=== PATIENT | female | born 1945 | race Caucasian/White ===

== ENCOUNTER 2022-11-08 09:06 | Outpatient (CLI) | payer MEDICARE, SELFPAY | END 2022-11-08 09:07 | disposition home or self-care (01) | LOC: OP CLINIC 09:15 | PROVIDERS: PCP Family Medicine; Visit Provider Surgery | DX: Z86.010 Personal history of colon polyps (principal); K63.5 Polyp of colon; K57.30 Diverticulosis of large intestine without perforation or abscess without bleeding; Z80.0 Family history of malignant neoplasm of digestive organs; Z98.890 Other specified postprocedural states | CPT/HCPCS: 45380; 45385; 88305; 99153; J1200; J2250; J3010 ==

== ENCOUNTER 2023-05-22 06:46 | Day surgery (SDC) | payer MEDICARE, SELFPAY ==
[2023-05-22] MEDS: TETRACAINE 0.5% OPHTH 1 DROP EYE-LEFT ×2 (06:50→06:55)
[2023-05-22] MEDS: KETOROLAC OPHTH 0.5% 1 DROP EYE-LEFT ×3 (06:50→07:00)
[2023-05-22 07:10] VITALS: BMI 23.6
[2023-05-22 07:13] VITALS: BP 128/90; PULSE 78; RESP 16; TEMP 36.8; O2SAT 96
[2023-05-22] MEDS: SODIUM CHLORIDE 0.9 % (FLUSH) 10 ML SYRINGE IVF (07:14)
--- NOTE | 2023-05-22 07:17 | SUR.PREOP ---
The eye drops brought by the patient (Ketorolac and Prednisolone) are examined and I have determined they are labeled by the patient's pharmacy for this patient as prescribed by the surgeon. The bottles are intact, recently obtained and appear to be correct. left eye volkertr
[2023-05-22] MEDS: TETRACAINE 0.5% OPHTH 2 DROP EYE-LEFT (07:52)
[2023-05-22] MEDS: BALANCED SALT IRRIG SOLN 15 ML EYE-LEFT (07:54)
--- NOTE | 2023-05-22 07:59 | W.ANESCHARGE ---
Anesthesia Charges Start Date/Time Anesthesia Start Date: 05/22/23 Anesthesia Start Time: 07:48 Stop Date/Time Anesthesia Stop Date: 05/22/23 Anesthesia Stop Time: 08:18 Summary Extremes of Age - Over 70 or under 1: MDA
[2023-05-22 08:18] VITALS: BP 127/90; PULSE 78; RESP 16; TEMP 36.4; O2SAT 96
--- NOTE | 2023-05-22 08:19 | P.ANES_ITS ---
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
--- NOTE | 2023-05-22 09:11 | P.OPTPRC_ITS ---
Procedure Note Date of procedure: 05/22/23 Will [facility] bill your pro fee for this procedure?: Yes Procedure Description: SURGEON: Kathrine Martin MD PREOPERATIVE DIAGNOSIS: Nuclear sclerotic cataract, left eye. POSTOPERATIVE DIAGNOSIS: Nuclear sclerotic cataract, left eye. NAME OF OPERATION: Phacoemulsification of cataract with posterior chamber intraocular lens implantation in the left eye. ANESTHESIA: Topical. ESTIMATED BLOOD LOSS: Less than 2 cc. COMPLICATIONS: None. PATHOLOGY SPECIMEN: None. INDICATIONS: See consult note for details. The risks, benefits and alternatives of the procedure were explained to the patient, who elected to proceed and sig bindu informed consent to do so. PROCEDURE: The patient was brought to the pre-holding area where the left eye was identified as the operative eye. I placed my initials above this eye. The patient received eye drops consisting of 0.5% tetracaine, 1% tropicamide, 10% phenylephrine, and 0.5% ketorolac. The patient was then brought to the operating room where the left eye was again identified as the operative eye. The eye was prepped with Betadine and draped in the usual sterile ophthalmic fashion. A #15 super-sharp blade was used to create a paracentesis site. 1% non-preserved intracameral lidocaine was injected into the anterior chamber. Endocoat was injected into the anterior chamber. A 2.4 mm keratome was used to create a three-plane self-sealing incision 1 mm anterior to the temporal limbus. A cystotome was used to create an anterior capsular leaflet. The Utrata forceps were used to extend this to form a continuous curvilinear capsulorrhexis. Hydrodissection was performed. The cataract was removed with phacoemulsification using the eszojj-[id number]-vptonyr technique. The irrigation and aspiration tip was used to remove the remaining cortex. Healon was injected into the capsular bag. An JANA ZCB00 intraocular lens of 21.0 diopters was injected into the capsular bag. The irrigation and aspiration tip was used to remove the remaining viscoelastic. Balanced salt solution on a cannula was used to hydrate the wound, and the wound was found to be watertight. The pupil was noted to be round. DISPOSITION: The patient was taken to the recovery room and discharged to home in stable condition. The patient was instructed to call me or go to the emergency department with any sudden change, including dramatic loss of vision, severe pain in the eye or eyebrow region, nausea, or vomiting. The patient will follow up in the clinic tomorrow morning.
== END 2023-05-22 09:35 | disposition home or self-care (01) ==
PROVIDERS: PCP Family Medicine; Visit Provider Ophthalmology
PROC: (CPT 66984; principal; 2023-05-22 06:45)
DX: H25.12 Age-related nuclear cataract, left eye (principal)
CPT/HCPCS: 66984; 142; 99100; A9270; J2250; J3010; V2632

== ENCOUNTER 2023-06-05 08:43 | Day surgery (SDC) | payer MEDICARE, SELFPAY ==
[2023-06-05] MEDS: KETOROLAC OPHTH 0.5% 1 DROP EYE-RIGHT ×3 (09:00→09:20)
[2023-06-05] MEDS: TETRACAINE 0.5% OPHTH 1 DROP EYE-RIGHT ×2 (09:00→09:13)
--- NOTE | 2023-06-05 09:12 | SUR.PREOP ---
The eye drops brought by the patient (Ketorolac and Prednisolone) are examined and I have determined they are labeled by the patient's pharmacy for this patient as prescribed by the surgeon. The bottles are intact, recently obtained and appear to be correct.
[2023-06-05 09:13] VITALS: BP 145/86; PULSE 76; RESP 16; TEMP 36.6; O2SAT 98
[2023-06-05 09:14] VITALS: BMI 23.6
[2023-06-05] MEDS: SODIUM CHLORIDE 0.9 % (FLUSH) 10 ML SYRINGE IVF (09:25)
--- NOTE | 2023-06-05 09:40 | W.ANESCHARGE ---
Anesthesia Charges Start Date/Time Anesthesia Start Date: 06/05/23 Anesthesia Start Time: 10:16 Stop Date/Time Anesthesia Stop Date: 06/05/23 Anesthesia Stop Time: 10:51 Summary Extremes of Age - Over 70 or under 1: MDA
[2023-06-05] MEDS: TETRACAINE 0.5% OPHTH 2 DROP EYE-RIGHT (10:20)
--- NOTE | 2023-06-05 10:21 | W.ANESCHARGE ---
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
[2023-06-05] MEDS: BALANCED SALT IRRIG SOLN 15 ML EYE-RIGHT (10:24)
[2023-06-05 10:47] VITALS: BP 127/88; PULSE 73; RESP 16; TEMP 36.6; O2SAT 95
--- NOTE | 2023-06-05 10:52 | W.PM.OPTPROC ---
Procedure Note Date of procedure: 06/05/[address] [facility] bill your pro fee for this procedure?: Yes Procedure Description: SURGEON: Kathrine Martin MD PREOPERATIVE DIAGNOSIS: Nuclear sclerotic cataract, right eye. POSTOPERATIVE DIAGNOSIS: Nuclear sclerotic cataract, right eye. NAME OF OPERATION: Phacoemulsification of cataract with posterior chamber intraocular lens implantation in the right eye. ANESTHESIA: Topical. ESTIMATED BLOOD LOSS: Less than 2 cc. COMPLICATIONS: None. PATHOLOGY SPECIMEN: None. INDICATIONS: See consult note for details. The risks, benefits and alternatives of the procedure were explained to the patient, who elected to proceed and signed informed consent to do so. PROCEDURE: The patient was brought to the pre-holding area where the right eye was identified as the operative eye. I placed my initials above this eye. The patient received eye drops consisting of 0.5% tetracaine, 1% tropicamide, 10% phenylephrine, and 0.5% ketorolac. The patient was then brought to the operating room where the right eye was again identified as the operative eye. The eye was prepped with Betadine and draped in the usual sterile ophthalmic fashion. A #15 super-sharp blade was used to create a paracentesis site. 1% non-preserved intracameral lidocaine was injected into the anterior chamber. Endocoat was injected into the anterior chamber. A 2.4 mm keratome was used to create a three-plane self-sealing incision 1 mm anterior to the temporal limbus. A cystotome was used to create an anterior capsular leaflet. The Utrata forceps were used to extend this to form a continuous curvilinear capsulorrhexis. Hydrodissection was performed. The cataract was removed with phacoemulsification using the [id number] technique. The irrigation and aspiration tip was used to remove the remaining cortex. Healon was injected into the capsular bag. An JANA ZCB00 intraocular lens of 21.0 diopters was injected into the capsular bag. The irrigation and aspiration tip was used to remove the remaining viscoelastic. Balanced salt solution on a cannula was used to hydrate the wound, and the wound was found to be watertight. The pupil was noted to be round. DISPOSITION: The patient was taken to the recovery room and discharged to home in stable condition. The patient was instructed to call me or go to the emergency department with any sudden change, including dramatic loss of vision, severe pain in the eye or eyebrow region, nausea, or vomiting. The patient will follow up in the clinic tomorrow morning.
== END 2023-06-05 11:21 | disposition home or self-care (01) ==
PROVIDERS: PCP Family Medicine; Visit Provider Ophthalmology
PROC: (CPT 66984; principal; 2023-06-05 09:00)
DX: H25.11 Age-related nuclear cataract, right eye (principal)
CPT/HCPCS: 66984; 00142; 99100; A9270; J2250; J3010; V2632

== ENCOUNTER 2025-07-14 18:21 | Outpatient (CLI) | payer MEDICARE, SELFPAY | END 2025-07-14 18:22 | disposition home or self-care (01) | LOC: AMB 07-16 01:11 | PROVIDERS: PCP Family Medicine; Visit Provider Emergency Medicine Emergency Medical Services | DX: R42 Dizziness and giddiness (principal) | CPT/HCPCS: A0425; A0427 ==

== ENCOUNTER 2025-07-14 18:53 | Emergency (ER) | payer MEDICARE, SELFPAY ==
[2025-07-14 19:04] VITALS: BP 142/84; PULSE 67; RESP 18; TEMP 36.6; O2SAT 98; BMI 24.4
--- NOTE | 2025-07-14 19:23 | ED.DIZZY ---
HPI - Dizziness General Chief Complaint: Dizziness/Vertigo Stated Complaint: dizzy Time Seen by Provider: 07/14/25 19:14 History of Present Illness HPI Narrative: This 79-year-old female comes in reporting vertigo symptoms that started about 2 hours prior to arrival here. She had associated nausea with vomiting. She states that she has had vertigo long ago. She is otherwise in good health. She reports that the vertigo symptoms are minimal when remaining still. She does not report any speech change or other neurologic dysfunction. She does not have any hearing changes and does not report any headache. Related Data Home Medications ?Medication ?Instructions ?Recorded ?Confirmed calcium 600 mg (as 2 tab PO DAILY 05/08/23 05/25/24 carbonate)-vitamin D3 10 mcg (400 unit) tablet vitamins A,C,L-fxha-baqbow 2,148 2 tab PO .QD 05/08/23 05/25/24 mcg-113 mg-45 mg-17.4 mg tablet (PreserVision AREDS) Previous Rx's ?Medication ?Instructions ?Recorded meclizine 25 mg tablet 25 mg PO QID #20 tabs 07/14/25 Allergies Allergy/AdvReac Type Severity Reaction Status Date / Time No Known Drug Allergies Allergy Verified 05/25/24 12:47 Review of Systems Status of ROS: Reports: 10 or more systems reviewed and unremarkable except as noted in History and below Narrative: Constitutional: No fevers, no weight gain or loss. Eyes: No discharge. No vision changes. HENT: No congestion, no sore throat, no ear pain. Cardiovascular: No chest pain, no palpitations. Respiratory: No shortness of breath, no wheezes, no cough. Gastrointestinal: No abdominal pain, no vomiting, no diarrhea. Genitourinary: No dysuria, no hematuria. Musculoskeletal: Normal range of motion. Skin: No rashes, no pruritis. Neurological: No weakness, sensory change, speech change. Vertigo symptoms as described above. Endo/Heme/Allergies: No bruising or bleeding. No polydipsia. Pysch: no suicidality, no anxiety, no insomnia. All other systems reviewed and are negative. [facility] Surgical History (Updated 05/02/23 @ 08:24 by Radha Pena ~ PSR) History of colonoscopy (10/08/19) ?Z98.890 - Other specified postprocedural states (ICD-10) History of bunionectomy ?Z98.890 - Other specified postprocedural states (ICD-10) Hx of spinal fusion ?Z98.1 - Arthrodesis status (ICD-10) Social History Smoking Status: Never smoker Do you use any of these nicotine containing products: None How often do you have a drink containing alcohol: 4 or more times a week Alcohol type: wine How many standard drinks containing alcohol do you have on a typical day: 1 or 2 How often do you have six or more drinks on one occasion: Never AUDIT-C Alcohol total score: 4 Non-prescribed substance use: denies use Caffeine: Yes Are you using contraception or practicing any form of control: No Exam Narrative: Exam Narrative: Constitutional: Well-developed, well-nourished, no acute distress. HEENT: Normocephalic, atraumatic. No nystagmus. Neck: Normal range of motion. Nontender. Supple. Heart: Regular. No murmurs. Normal rate. Intact distal pulses. Lungs: Clear to auscultation. No chest discomfort. No wheezes, rhonchi, or rales. Abdomen: Normal bowel sounds. Nontender. No rebound tenderness. Genitalia: Deferred. Back: No midline tenderness. Normal range of motion. Extremities: Normal range of motion. No injury. Skin: Intact. No rash. Warm. No erythema or pallor. Neurologic: No altered sensation. No weakness. Alert and oriented. No facial asymmetry. Tongue is midline. Zpuzao-pr-ldsb is normal. No pronator drift. Nurse Substance Abuse strength is equal bilaterally. Able to raise each leg from the bed. Psychiatric: No suicidality. No anxiety or depression. No insomnia. Nursing notes and vitals signs are reviewed. Const: Vital Signs, click to edit/add: Vital Signs - 24 hr 07/14/25 19:04 Temperature 97.8 F Pulse Rate [Pulse Oximeter] 67 Respiratory Rate 18 Blood Pressure [Ri ght Upper Arm] 142/84 H Pulse Oximetry 98 Oxygen Delivery Me thod Room Air Course Vital Signs Vital signs: Initial Vital Signs Temperature 97.8 F 07/14/25 19:04 Temperature Source Temporal Artery Scan 07/14/25 19:04 Pulse Rate 67 07/14/25 19:04 Respiratory Rate 18 07/14/25 19:04 Blood Pressure 142/84 H 07/14/25 19:04 Blood Pressure Mean 103 07/14/25 19:04 Blood Pressure Position Sitting 07/14/25 19:04 Pulse Oximetry 98 07/14/25 19:04 Oxygen Delivery Method Room Air 07/14/25 19:04 Vital Signs Temperature 97.8 F 07/14/25 19:04 Pulse Rate 67 07/14/25 19:04 Respiratory Rate 18 07/14/25 19:04 Blood Pressure 142/84 H 07/14/25 19:04 Pulse Oximetry 98 07/14/25 19:04 Oxygen Delivery Method Room Air 07/14/25 19:04 Temperature 97.8 F 07/14/25 19:04 Pulse Rate 67 07/14/25 19:04 Respiratory Rate 18 07/14/25 19:04 Blood Pressure 142/84 H 07/14/25 19:04 Pulse Oximetry 98 07/14/25 19:04 Oxygen Delivery Method Room Air 07/14/25 19:04 Medications Administered Medications: Discontinued Medications Generic Name Dose Route Start Last Admin Trade Name Tamir PRN Reason Stop Dose Admin Meclizine HCl 25 mg 07/14/25 19:22 07/14/25 19:30 Meclizine Hcl 25 Mg Tablet PO 07/14/25 19:23 25 mg ONCE ONE Administration Ondansetron HCl 4 mg 07/14/25 19:22 07/14/25 19:30 Ondansetron Odt 4 Mg Tab PO 07/14/25 19:23 4 mg ONCE ONE Administration MDM - Dizziness MDM Narrative Medical decision making narrative: This 79-year-old female comes in with vertigo symptoms as described above. She is not showing any sign of neurologic deficit and her symptoms do not at all appear to be from a central process. When remaining still she has minimal symptoms if at all. The patient did receive oral doses of meclizine and Zofran and later was able to get up and ambulate without difficulty. She states she is feeling better and feels okay to return home. Discharge Plan Discharge Clinical Impression: Acute vestibular neuronitis Patient Disposition: Home w/ Parent or Adult Condition: Improved Additional Instructions: Use medicines as needed and directed for symptomatic relief. Increase activity as tolerated. Follow up with MD return if worsening. Prescriptions: New meclizine 25 mg tablet 25 mg PO QID Qty: 20 0RF No Action calcium carbonate-vitamin D3 600 mg-10 mcg (400 unit) tablet 2 tab PO DAILY PreserVision AREDS 2,148 mcg-113 mg-45 mg-17.4mg tablet 2 tab PO .QD Rx Instructions: administer with AM and PM meals Follow Up/Referrals: Yovany Meraz MD [Primary Care Provider, Family Practice] Stand Alone Forms: [employer] Info Instructions
[2025-07-14] MEDS: ONDANSETRON ODT 4 MG TAB PO (19:30)
[2025-07-14] MEDS: MECLIZINE HCL 25 MG TABLET PO (19:30)
== END 2025-07-14 21:06 | disposition home or self-care (01) ==
PROVIDERS: Emergency Provider Emergency Medicine Emergency Medical Services; PCP Family Medicine
DX: H81.20 Vestibular neuronitis, unspecified ear (principal)
CPT/HCPCS: 99283; 99284; A9270